=== PATIENT | male | born 1990 | race Caucasian/White ===

== ENCOUNTER → 2020-11-19 10:00 | Outpatient (CLI) | payer OTHER, SELFPAY | PROVIDERS: PCP Nurse Practitioner Primary Care; Referring Provider Urology; Visit Provider Urology | DX: Z03.818 Encounter for observation for suspected exposure to other biological agents ruled out (principal); N39.0 Urinary tract infection, site not specified | CPT/HCPCS: 87077; 87086; 87088; 87186; 87635; C9803; U0005; U0003 ==